=== PATIENT | female | born 2005 | race Caucasian/White ===

== ENCOUNTER 2023-01-03 23:38 | Emergency (ER) | payer OTHER | END 2023-01-04 00:51 | disposition left against medical advice (07) | LOC: DL.ED 23:38 | DX: Z53.21 Procedure and treatment not carried out due to patient leaving prior to being seen by health care provider (principal) ==

== ENCOUNTER 2024-05-10 23:49 | Emergency (ER) | payer OTHER ==
[2024-05-11 00:28] LABS: APPEARANCE,URINE CLEAR (CLEAR); BILIRUBIN,URINE NEGATIVE (NEGATIVE); COLOR,URINE YELLOW (YELLOW); GLUCOSE,URINE NEGATIVE (NEGATIVE); KETONES,URINE NEGATIVE (NEGATIVE); LEUKOCYTE ESTERASE,URINE NEGATIVE (NEGATIVE); NITRITE,URINE NEGATIVE (NEGATIVE); OCCULT BLOOD,URINE TRACE-INTACT (NEGATIVE); PROTEIN,URINE NEGATIVE (NEGATIVE); UROBILINOGEN,URINE 0.2 mg/dL (0.2-1.0)
[2024-05-11 00:40] LABS: BACTERIA,URINE FEW /HPF (0-FEW/HPF); EPITHELIAL CELLS,URINE FEW /HPF (NOT SEEN); RBC,URINE 0-5 /HPF (0-5)
[2024-05-11 00:41] LABS: MUCUS,URINE FEW /LPF (NOT SEEN)
== END 2024-05-11 01:05 | disposition home or self-care (01) ==
LOC: DL.ED 23:49
DX: N76.0 Acute vaginitis (principal); E86.9 Volume depletion, unspecified
CPT/HCPCS: 81001; 81025; 99283